=== PATIENT | female | born 1965 | race Caucasian/White ===

== ENCOUNTER 2018-12-11 11:02 | Observation (INO) ==
[2018-12-11] MEDS ORDERED: TYLENOL PO PRN (11:47)
[2018-12-11] MEDS ORDERED: NITROGLYCERIN SL PRN (11:47)
[2018-12-11] MEDS ORDERED: ZOFRAN IV PRN (11:47)
[2018-12-11] MEDS ORDERED: SALINE LOCK IV FLUID XX ONE (11:47)
--- NOTE | 2018-12-11 12:09 | EKG Report ---
Test Performed on : 12/11/2018 12:01:14 PM Test Reason : cp Blood Pressure : / mmHG Vent. Rate : 080 BPM Atrial Rate : 080 BPM P-R Int : 178 ms QRS Dur : 098 ms QT Int : 366 ms P-R-T Axes : 057 045 -05 degrees QTc Int : 422 ms Normal sinus rhythm. Possible Left atrial enlargement ST & T wave abnormality, consider inferior ischemia Abnormal ECG No previous ECGs available Confirmed by Maria Luisa JACKSON, Chris Medellin ([id number]) on 12/12/2018 9:03:44 AM
[2018-12-11] MEDS: ASPIRIN PO SCH (12:32)
[2018-12-11 12:51] LABS: INR 0.97; PROTIME 12.9 Seconds (11.0-16.0)
[2018-12-11 13:09] LABS: AGAP 14; CHLORIDE 101 mmol/L (98-107); POTASSIUM 3.6 mmol/L (3.5-5.1); SODIUM 140 mmol/L (136-145); TCO2 25 mmol/L (25-35)
[2018-12-11 13:10] LABS: ALB/GLOB RATIO 1.8; ALBUMIN 4.7 g/dL (3.5-5.0); ALKALINE PHOSPHATASE 64 U/L (32-104); BUN 15 mg/dL (8-22); CALCIUM 9.8 mg/dL (8.8-10.2); COSMO 280; CREATININE 0.6 mg/dL (0.5-0.9); ESTIMATED GFR > 60; GLUCOSE 99 mg/dL (70-104); GOT 20 U/L (10-30); GPT 16 U/L (10-36); TOTAL BILIRUBIN 0.49 mg/dL (0.20-1.00); TOTAL PROTEIN 7.3 g/dL (6.3-8.3)
--- NOTE | 2018-12-11 14:14 | Diag Imaging Result Doc PS360 ---
EXAM: CHEST-2 VIEWS INDICATION: Chest Pain TECHNIQUE: 2 views COMPARISON: 05/10/2013 FINDINGS: There are stable surgical clips bilaterally with mild scarring in the perihilar and upper lung zone on the right and the lower lung zone on the left, stable. The lungs are grossly clear, otherwise. There is no discrete pleural fluid collection or pneumothorax. The cardiomediastinal silhouette and central vasculature are grossly unremarkable. IMPRESSION: Stable mild bilateral scarring. No evidence of acute chest pathology by plain radiograph. Electronically signed by Mateo Spencer 12/11/2018 2:12 PM
--- NOTE | 2018-12-11 14:49 | CARDIOLOGY PROGRESS NOTE ---
DATE: 12/11/2018 INDICATION: Chest pain. FINDINGS: 1. Right atrium is mildly enlarged at 4.1 cm. 2. Mild tricuspid regurgitation. 3. Normal RV size and systolic function. 4. No significant pulmonic insufficiency. 5. Normal left atrial size at 3.1 cm. 6. No mitral valve prolapse. No significant mitral stenosis. No significant mitral regurgitation. 7. Normal LV size, end-diastolic dimension of 4.4 cm. Normal wall thicknesses with posterior and interventricular septal wall thickness of 1 cm each. Normal LV systolic function. Estimated EF of 60% with normal wall motion. 8. Aortic valve opens well. It is trileaflet. No evidence of stenosis or insufficiency. 9. Aorta appears normal in visualized segments. 10. No pericardial effusion seen. cc: MD Adrian Villalba MD MTDD
[2018-12-11] MEDS: LOPRESSOR PO SCH ×2 (15:56→22:11)
--- NOTE | 2018-12-11 20:36 | HISTORY AND PHYSICAL ---
CHIEF COMPLAINT: Chest pain. HISTORY OF PRESENT ILLNESS: The patient is a 53-year-old white female followed in my medical practice, who states that she has had some off and on chest pain starting initially about 1 month ago. She says she remembers that it came on just after she had worked out with her normal routine of weights and elliptical, and the pain was inferior to her left breast and was dull in character, and got better with rest. The next day, she had somewhat similar pain, achy in nature and dull in the left medial chest area, occurring at rest. She went several days without difficulty and then about 10 days later, went on a 13 mile bike ride with her and had no difficulty. On 11/29/2018, she had dizziness and felt extremely tired and had some light pressure inferior to the left breast. Within the last 5 days, she has developed frequent dizziness and pressure in her left medial chest inferior to the left breast. This can occur with rest or with activity. Often, she will feel anxious about it. She will have some mild diaphoresis. No radiation to the neck or arms. MEDICATIONS PRIOR TO ADMISSION: None. ALLERGIES: Hydrocodone and Ultram. PAST MEDICAL HISTORY: 1. History of colon cancer, diagnosed July 1998. 2. History of lung metastases from the colon cancer, diagnosed May 2000, with chemotherapy for 6 months thereafter, and requiring a second round of chemotherapy after that. 3. Migraine headaches. PAST SURGICAL HISTORY: 1. Sigmoid colon resection, 1998. 2. Right lower colectomy secondary to metastases, June 2000. 3. Right lower lung lobectomy. IMMUNIZATIONS: Tdap given in September 1017. FAMILY HISTORY: Mi noted in paternal grandmother and in her grandfather. Paternal aunt with stroke in her 60s. Father with colon cancer. Hypertension in her mother. No diabetes in the family. SOCIAL HISTORY: The patient lives in [place]. She is originally from [place]. She is and has 2 children. She has been a housewife longstanding. Never been a smoker. Drinks occasional alcohol. REVIEW OF SYSTEMS: Negative except as above. PHYSICAL EXAMINATION: VITAL SIGNS: Weight 162, which is stable. Height 5 feet 6 inches tall. Blood pressure 134/100, pulse 59, BMI 26. GENERAL: Mildly anxious-appearing white female in no acute distress. SKIN: Warm and dry. HEENT: NC/AT. PERRL. EOMI. Sclerae are clear. Oropharynx: No redness. Tongue in the midline. NECK: No LA, TMG, JVD, bruits. CARDIOVASCULAR: RRR without MGR. LUNGS: CTA. CHEST WALL: Minimally tender to palpation in left mid upper medial sternal area. ABDOMEN: Soft, NT, ND. No mass. No HSM. BREASTS, PELVIC, RECTAL: Deferred. EXTREMITIES: No calf tenderness, cords, or edema. Peripheral pulses 2+ NEUROLOGIC: Cranial nerves 2 through 12 are intact. Nonfocal. EKG: EKG done in the office reveals normal sinus rhythm with inferior and lateral ST depression and inverted T-waves, rule out ischemia. No old EKGs available for comparison. ASSESSMENT: 1. Chest pain. 2. Abnormal electrocardiogram. 3. History of colon cancer with metastasis to the lungs, remote, in 1998 through 2000. PLAN: 1. Will admit the patient. 2. Obtain serial cardiac enzymes, troponin levels, CBC, CMP, chest x-ray. 3. Place her on p.r.n. nitroglycerin sublingually. 4. Give her low dose metoprolol if her heart rate allows. 5. Will give her daily aspirin. 6. Will ask Cardiology to see the patient in consultation. cc: Adrian Olivares MD
[2018-12-11 20:49] LABS: HEMATOCRIT 41.1 % (37.0-47.0); MCH 29.9 PG (27-31); MCHC 34.1 g/dL (33-37); MCV 87.8 FL (81-99); RBC 4.68 XMIL (4.2-5.4); RDW 12.8 % (11.5-14.5); WBC 5.28 X1000 (4.8-10.8)
[2018-12-11 20:50] LABS: BASO# 0.03 X1000 (0.0-0.2); BASO% 0.6 % (0.0-0.8); EOS# 0.11 X1000 (0.0-0.7); EOS% 2.1 % (0.0-10.0); LYMPH# 1.36 X1000 (1.2-3.4); LYMPH% 25.8 % (20.5-51.1); MONO# 0.53 X1000 (0.11-0.59); MPV 10.2 FL (7.4-10.4); NEUT# 3.25 X1000 (1.4-6.5); NEUT% 61.5 % (42.2-75.2); PLT 218 X1000 (130-400)
--- NOTE | 2018-12-12 00:02 | CARDIOLOGY CONSULTATION ---
DATE: 12/11/2018 IMPRESSION: 1. Recurrent chest discomfort with mixed features for possible myocardial ischemia. Symptoms probably more atypical than typical. 2. Abnormal ECG with nonspecific ST- and T-wave abnormality. 3. History of colon cancer resection 20 years ago. She had recurrent metastasis in her lung and is status post chemotherapy for this. RECOMMENDATIONS: 1. Telemetry observation. 2. Empiric aspirin 81 mg p.o. daily. 3. Follow up echocardiography result. 4. Serial cardiac enzymes. 5. If cardiac enzymes negative and echocardiography benign, it would be reasonable for her to go home and have outpatient stress myocardial perfusion study, as this is what she would prefer to do. HISTORY: This 53-year-old, white female, with past history of previous colon cancer, was admitted for further evaluation of recurrent chest discomfort. She is fairly active physically and exercises at [employer] on a regular basis. About a month ago, after exercising, she got home and experienced some left chest heaviness. There were no other associated symptoms. She felt a little bit of shortness of breath. Symptoms lasted about 10 minutes and resolved spontaneously. She has had a few recurrences thereafter, but then symptoms seemed to prerna for a period of time. This past week, her chest discomfort reemerged in similar fashion with nonexertional left chest heaviness with some mild shortness of breath. Symptoms have not been exertion related. She has not noted any relationship to diet. Episodes tend to be brief, lasting 5 to 10 minutes at most. She saw Dr. Olivares today, and reported her symptoms. ECG was abnormal and she was subsequently referred for admission. She presently has not any chest discomfort. She has continued active without exertional chest discomfort. A week or so ago, she and her road bicycles for about 13 miles on trials around the [facility]. She had no chest discomfort or shortness of breath with this. Symptoms do not seem positional. She has not noted any palpitations or tachycardia. PAST MEDICAL HISTORY INCLUDES: 1. Colon cancer diagnosed 20 years ago and resected. She had limited-stage disease. She had later recurrence of what was felt to be colon cancer metastasis in her lung and had chemotherapy for this. 2. Negative for hypertension, negative for hyperlipidemia, negative for diabetes. ALLERGIES: She has no known drug allergies. MEDICATIONS PRIOR TO ADMISSION: As listed. SOCIAL HISTORY: She is . 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 She does not smoke. FAMILY HISTORY: Negative for premature coronary disease. REVIEW OF SYSTEMS: Pulmonary: Noncontributory beyond history of present illness. Gastrointestinal: Noncontributory beyond history of present illness. Constitutional: Noncontributory beyond history of present illness. Remainder of review of systems negative/noncontributory beyond history of present illness with 14 total systems reviewed. PHYSICAL EXAMINATION: A pleasant, middle-aged, white female, in no distress on room air. Blood pressure 134/90, heart rate 80, oxygen saturation 97% on room air.HEENT: Extraocular movements appear intact. Mucous membranes are moist. Neck: Supple without jugular venous distention. There are no carotid bruits. Chest: Clear to auscultation. Cardiac: Regular rate and rhythm without appreciable murmur or gallop. Abdomen: Soft. Bowel sounds are normal. Extremities: Without edema. Neurologic: Alert and fully oriented. Speech is fluent. She moves all 4 extremities equally well. Skin: Warm and dry. Psychiatric: Reveals her mood to be appropriate. LABORATORY AND DIAGNOSTIC DATA: Chest x-ray demonstrates no acute infiltrates. Cardiac silhouette is normal. Laboratory data includes a sodium of 140, potassium 3.6, chloride 101, carbon dioxide 25, BUN 15, creatinine 0.6, glucose 99. Troponin T less than 0.01. CPK 119. A 12- lead EKG demonstrates sinus rhythm and nonspecific ST- and T-wave abnormality. cc: MD Adrian Person MD
[2018-12-12] MEDS ORDERED: PRILOSEC PO SCH (07:00)
[2018-12-12 07:21] VITALS: BP 115/73
--- NOTE | 2018-12-12 08:19 | EKG Report ---
Test Performed on : 12/12/2018 07:01:25 AM Test Reason : chest pain Blood Pressure : / mmHG Vent. Rate : 047 BPM Atrial Rate : 047 BPM P-R Int : 184 ms QRS Dur : 094 ms QT Int : 502 ms P-R-T Axes : 046 044 031 degrees QTc Int : 444 ms Sinus bradycardia. T wave abnormality, consider anterior ischemia Abnormal ECG When compared with ECG of 11-DEC-2018 12:01, (Unconfirmed) Vent. rate has decreased BY 33 BPM T wave inversion no longer evident in Inferior leads Nonspecific T wave abnormality no longer evident in Lateral leads Confirmed by Maria Luisa JACKSON, Chris Medellin ([id number]) on 12/12/2018 9:15:41 AM
[2018-12-12] MEDS: ASPIRIN PO SCH (08:30)
[2018-12-12] MEDS: LOPRESSOR PO SCH (08:30)
--- NOTE | 2018-12-12 09:09 | PROGRESS NOTE ---
DATE: 12/12/2018 SUBJECTIVE: Patient without any chest pain overnight. She feels well. She had been evaluated by Dr. Juárez yesterday. OBJECTIVE: Vital signs: Afebrile. Vital signs stable. CV: RRR. No murmur. Lungs: CTA. Extremities: No calf tenderness, cords or edema. DIAGNOSTIC DATA: Cardiac enzymes and troponin levels normal. Direct lipid profile was obtained this morning but may not been completely fasting, so this is equivocal. We may repeat this one time outpatient prior to adding medication. Triglycerides were 117, total cholesterol 302, LDL 221, VLDL 23, HDL 76. CMP and CBC, PT, and PTT unremarkable. Chest x-ray shows some stable mild bilateral scarring, otherwise negative. Echocardiogram normal yesterday with the EF of 60%. ASSESSMENT: 1. Chest pains with typical and atypical symptoms. 2. Abnormal EKG, but nonspecific. 3. History of colon cancer with metastasis to the lungs and prior colectomy and lobectomy 20 years ago. 4. Possible hypercholesterolemia. PLAN: We will discharge the patient home as recommended by Dr. Juárez. The patient will undergo outpatient nuclear stress testing early next week. Discharge medications will be aspirin 81 mg daily, Protonix 40 mg daily, Toprol-XL will be added at 12.5 mg daily. Again, we will repeat fasting lipid profile outpatient once he returns to follow up with me in about 10 days, and we will consider addition of lipid-lowering agent if still high at that point. She knows if she has any difficulties, to return to the hospital. cc: Adrian Olivares MD
== END 2018-12-12 11:35 | disposition home or self-care (01) ==
LOC: DIRADM → 3N 11:02
PROVIDERS: ADMIT Family Medicine; ATTEND Family Medicine